=== PATIENT | male | born 1935 | race Caucasian/White ===

== ENCOUNTER 2022-08-13 18:34 | Emergency (ER) | payer MEDICARE ==
[~2022-08-13] VITALS: Ht 162.6 cm; Wt 68.5 kg
[2022-08-13] MEDS ORDERED: IV NS 0.9% 1,000 ML BAG IV ONE (19:30)
--- NOTE | 2022-08-13 19:47 | NUR ---
BIB RA 837 FROM HOME,BLOODY DRAINAGE FROM LEUNG AFTER HOME HEALTH NURSE TRIED TO CHANGE LEUNG. 0PT AWAKE AND ALERT X3 STATES HEMATURIA STARTED TODAY ATRAUMATIC IN NATURE. GROSS HEMATURIA NOTED IN LEUNG BAG. UNABLE TO FLUSH/IRRIGATE CATHETER. V/S WNL.
[2022-08-13 19:48] LABS: CARBON DIOXIDE 27 mmol/L (21-32); CHLORIDE 103 mmol/L (98-107); CREATININE 1.4 mg/dL (0.6-1.3); GLUCOSE 100 mg/dL (74-106); POTASSIUM 3.9 mmol/L (3.5-5.1); SODIUM SERUM 138 mmol/L (136-145); UREA NITROGEN, BLOOD 33 mg/dL (7-18)
[2022-08-13 19:54] LABS: ALANINE AMINOTRANSFERASE 25 U/L (12-78); ALBUMIN 3.1 g/dL (3.4-5.0); ALKALINE PHOSPHATASE 110 U/L (46-116); ASPARTATE AMINOTRANSFERASE 30 U/L (15-37); BILIRUBIN,DIRECT 0.2 mg/dL (0.0-0.2); BILIRUBIN,TOTAL 0.5 mg/dL (0.2-1.0); TOTAL PROTEIN, SERUM 8.1 g/dL (6.4-8.2)
--- NOTE | 2022-08-13 20:04 | NUR ---
MAXINE [phone] .
[2022-08-13 20:09] LABS: BASOPHILS % (AUTO) 0.5 % (0.0-2.0); EOSINOPHILS % (AUTO) 1.4 % (0.0-6.0); HEMATOCRIT 38 % (39-51); HEMOGLOBIN 12.5 g/dL (13.5-17.5); LYMPHOCYTES # (AUTO) 1.4 K/uL (0.8-4.8); MEAN CORPUSCULAR HGB CONC 33 g/dl (31.0-36.0); MEAN CORPUSCULAR VOLUME 89 fL (80-96); MONOCYTES # (AUTO) 0.7 K/uL (0.1-1.30); MONOCYTES % (AUTO) 7.2 % (2.0-12.0); NEUTROPHILS # (AUTO) 7.5 K/uL (1.8-8.9); NEUTROPHILS % (AUTO) 76.9 % (43.0-81.0); PLATELET COUNT (AUTO) 633 K/uL (150-450); WHITE BLOOD COUNT (AUTO) 9.7 K/uL (4.3-11.0)
--- NOTE | 2022-08-13 20:10 | NUR ---
PREVIOUS LEUNG DC'ED DUE TO INABILITY TO IRRIGATE LEUNG. 16FR LEUNG CATHETER INSERTED WITH YELLOW URINE OUTPUT AND MULTIPLE BLOOD CLOTS NOTED APPROX 400ML OUTPUT. PT TOLERATED WELL.
[2022-08-13 20:47] LABS: BILIRUBIN,URINE NEGATIVE (NEGATIVE); COLOR,URINE YELLOW (YELLOW); LEUKOCYTE ESTERASE ,URINE SMALL (NEGATIVE); NITRITE, URINE NEGATIVE (NEGATIVE); PROTEIN,URINE TRACE mg/dl (NEGATIVE); UGLUCOSE NEGATIVE (NEGATIVE); UROBILINOGEN,URINE 0.2 EU/dL (0.2)
[2022-08-13 21:01] LABS: RBC,URINE 81-100 /HPF (0-2)
[2022-08-13 21:02] LABS: BACTERIA,URINE RARE /HPF (None Seen); SQUAMOUS EPITHELIAL CELL,UR 0-2 /HPF (None Seen)
--- NOTE | 2022-08-13 21:10 | NUR ---
APA ETA: 1.5-20 HOURS
--- NOTE | 2022-08-13 22:48 | NUR ---
apa at bed side to picker tender the pt
--- NOTE | 2022-08-13 23:00 | NUR ---
PT WAS PICKED UP BY [facility] IN STABLE CONDITION AND DISCHARGED BACK HOME IN STABLE CONDITION. Patient discharged to home in stable condition. Written and verbal after care instructions given. Patient verbalizes understanding of instruction.
--- NOTE | 2022-08-13 23:01 | NUR ---
IV removed. Catheter intact and site benign. Pressure and 4x4 applied to site. No bleeding noted.
[2022-08-13 23:18] VITALS: BP 127/88
== END 2022-08-13 23:19 | disposition home or self-care (01) ==
LOC: ER 19:38
DX: R31.9 Hematuria, unspecified (principal); Z46.6 Encounter for fitting and adjustment of urinary device
CPT/HCPCS: 99284; 74176; 96360; 51702; 85025; 80048; 87086; 80076; 87106; 81001; 36415; 85730; J7030; A4217

== ENCOUNTER 2022-08-26 09:30 | Emergency (ER) | payer MEDICARE ==
[~2022-08-26] VITALS: Ht 180.3 cm; Wt 73.0 kg
--- NOTE | 2022-08-26 09:45 | NUR ---
pt seen by dr wild at bedside for eval
[2022-08-26] MEDS ORDERED: ONDANSETRON HCL/PF 4 MG/2 ML VIAL ONE (09:59)
[2022-08-26] MEDS ORDERED: IV NS 0.9% 1,000 ML BAG IV ONE ×2 (10:00→16:00)
[2022-08-26] MEDS ORDERED: ONDANSETRON HCL/PF 4 MG/2 ML VIAL IVP ONE (10:00)
[2022-08-26 10:09] LABS: BASOPHILS % (AUTO) 0.2 % (0.0-2.0); HEMATOCRIT 39 % (39-51); HEMOGLOBIN 12.6 g/dL (13.5-17.5); LYMPHOCYTES # (AUTO) 1.2 K/uL (0.8-4.8); LYMPHOCYTES % (AUTO) 10.1 % (20.0-44.0); MEAN CORPUSCULAR HGB CONC 32 g/dl (31.0-36.0); MEAN CORPUSCULAR VOLUME 89 fL (80-96); MONOCYTES # (AUTO) 1.1 K/uL (0.1-1.30); NEUTROPHILS # (AUTO) 9.1 K/uL (1.8-8.9); NEUTROPHILS % (AUTO) 79.7 % (43.0-81.0); PLATELET COUNT (AUTO) 540 K/uL (150-450); RED BLOOD CELL COUNT(AUTO) 4.44 MIL/uL (4.5-6.0); WHITE BLOOD COUNT (AUTO) 11.4 K/uL (4.3-11.0)
--- NOTE | 2022-08-26 10:14 | NUR ---
iv line established on rfa #20, blood drawn and collected by phleb at bedside.
--- NOTE | 2022-08-26 10:14 | NUR ---
urine sample collected and sent to lab
--- NOTE | 2022-08-26 10:15 | NUR ---
graduate nurse at bedside for xray
--- NOTE | 2022-08-26 10:16 | NUR ---
pt taken to radiology for ct
[2022-08-26 10:23] LABS: CALCIUM, SERUM 9.8 mg/dL (8.5-10.1); CARBON DIOXIDE 22 mmol/L (21-32); CHLORIDE 99 mmol/L (98-107); CREATININE 2.5 mg/dL (0.6-1.3); GLUCOSE 149 mg/dL (74-106); POTASSIUM 4.8 mmol/L (3.5-5.1); SODIUM SERUM 131 mmol/L (136-145); UREA NITROGEN, BLOOD 37 mg/dL (7-18)
[2022-08-26 10:28] LABS: ALANINE AMINOTRANSFERASE 17 U/L (12-78); ALBUMIN 2.4 g/dL (3.4-5.0); ALKALINE PHOSPHATASE 81 U/L (46-116); ASPARTATE AMINOTRANSFERASE 39 U/L (15-37); BILIRUBIN,DIRECT 0.3 mg/dL (0.0-0.2); BILIRUBIN,TOTAL 0.6 mg/dL (0.2-1.0); TOTAL PROTEIN, SERUM 7.8 g/dL (6.4-8.2)
--- NOTE | 2022-08-26 10:35 | NUR ---
PT RETURNED FROM RADIOLOGY
--- NOTE | 2022-08-26 10:37 | NUR ---
TECH AT BEDSIDE FOR EKG
--- NOTE | 2022-08-26 10:41 | NUR ---
COVID SWAB COLLECTED AND SENT TO LAB
[2022-08-26] MEDS ORDERED: ATOR40TA PO (11:10)
[2022-08-26] MEDS ORDERED: BUPR75TA8 PO (11:10)
[2022-08-26] MEDS ORDERED: OLME40TA18 PO (11:10)
[2022-08-26] MEDS ORDERED: AMLO-212 PO (11:10)
[2022-08-26] MEDS ORDERED: LATA2.5D15 EACHEYE (11:10)
[2022-08-26] MEDS ORDERED: INSU100V28 SQ (11:10)
[2022-08-26] MEDS ORDERED: HYDR-4075 PO (11:14)
[2022-08-26 11:15] LABS: COLOR,URINE YELLOW (YELLOW)
[2022-08-26 11:16] LABS: BILIRUBIN,URINE NEGATIVE (NEGATIVE); PROTEIN,URINE 1+ mg/dl (NEGATIVE); UGLUCOSE NEGATIVE (NEGATIVE)
[2022-08-26 11:17] LABS: LEUKOCYTE ESTERASE ,URINE NEGATIVE (NEGATIVE); NITRITE, URINE NEGATIVE (NEGATIVE); UROBILINOGEN,URINE 0.2 EU/dL (0.2)
[2022-08-26 11:18] LABS: BACTERIA,URINE Few /HPF (None Seen); SQUAMOUS EPITHELIAL CELL,UR Moderate /HPF (None Seen)
--- NOTE | 2022-08-26 12:00 | NUR ---
MAXINE KRAUSE CELL # [phone] SURGERY REMOVAL OF CYST ON 03-26-[address] RAVINDER MONAHANURO VASCULAR DR. ORION CORDOBA NEURO [facility].
--- NOTE | 2022-08-26 12:09 | NUR ---
CALLED DR. PAUL [phone] OPTION 1 TISSUE RECOVERY TECHNICIAN IS PAUL RATLIFF WILL BE PAGED.
--- NOTE | 2022-08-26 14:04 | NUR ---
IMAGES SENT TO DR. RATLIFF [phone]
--- NOTE | 2022-08-26 14:43 | NUR ---
[facility] [phone] [facility] REQUESTING CLINICALS FAXED TO [phone]
[2022-08-26] MEDS ORDERED: CEFTRIAXONE 1 G in IV D5W 50 ML IV ONE (16:00)
[2022-08-26] MEDS ORDERED: CEFTRIAXONE 1GM BAG (ER ONLY) 50 ML IV ONE (16:03)
--- NOTE | 2022-08-26 18:15 | NUR ---
CALLED [facility] [phone] PER [facility] HAVE ACCEPTING DOCTOR BUT AWAITING FINACIAL CLEARENCE AND BED AVAILIBILITY.
--- NOTE | 2022-08-26 20:18 | NUR ---
PER EFRAIN AT [facility] THEY'RE STILL AT [facility]. WILL KEEP THE PT ACTIVE IN THE LIST
[2022-08-26 21:25] VITALS: BP 126/66
--- NOTE | 2022-08-26 22:26 | NUR ---
patient picked up by private ambulance in no distress going to [facility].
== END 2022-08-26 22:26 | disposition short-term general hospital (02) ==
LOC: ER 09:31
DX: I62.00 Nontraumatic subdural hemorrhage, unspecified (principal); R11.2 Nausea with vomiting, unspecified; N17.9 Acute kidney failure, unspecified; C61 Malignant neoplasm of prostate; R33.8 Other retention of urine; Z95.0 Presence of cardiac pacemaker; Z20.822 Contact with and (suspected) exposure to COVID-19
CPT/HCPCS: 99291; 96365; 70450; 96361; 96375; 87426; 93005; 71045; 85025; 80048; 87040 ×2; 87086; 83605; 80076; 81001; 36415; 84484 ×2; J0696 ×2; J2405; J7060; J7030 ×2; C9803

== ENCOUNTER 2022-09-18 09:36 | Inpatient (IN) | payer MEDICARE ==
[~2022-09-18] VITALS: Ht 160 cm; Wt 59.9 kg
[~2022-09-18 09:36] MED LIST: AMLO-212 PO; ATOR40TA PO; BUPR75TA8 PO; HYDR-4075 PO; INSU100V28 SQ; LATA2.5D15 EACHEYE; OLME40TA18 PO
--- NOTE | 2022-09-18 09:40 | NUR ---
RECEIVED PT 87 YRS MALE CAME FROM HOME BY [employer] C/O RECTALE BLEEDING RED AND BLACK STOOL NO VOMITING BLOOD
--- NOTE | 2022-09-18 10:00 | NUR ---
INSERTED ANGO CATHETER G 20 ON LT HAND BLOOD DROW AND SENT TO LAB
[2022-09-18 11:34] LABS: BASOPHILS # (AUTO) 0.1 K/uL (0.0-0.2); BASOPHILS % (AUTO) 0.8 % (0.0-2.0); HEMATOCRIT 23 % (39-51); HEMOGLOBIN 7.6 g/dL (13.5-17.5); LYMPHOCYTES # (AUTO) 1.3 K/uL (0.8-4.8); LYMPHOCYTES % (AUTO) 18.8 % (20.0-44.0); MEAN CORPUSCULAR HGB CONC 33 g/dl (31.0-36.0); MEAN CORPUSCULAR VOLUME 87 fL (80-96); MONOCYTES # (AUTO) 0.6 K/uL (0.1-1.30); MONOCYTES % (AUTO) 8.6 % (2.0-12.0); NEUTROPHILS % (AUTO) 70.8 % (43.0-81.0); PLATELET COUNT (AUTO) 438 K/uL (150-450); RED BLOOD CELL COUNT(AUTO) 2.66 MIL/uL (4.5-6.0)
[2022-09-18 11:54] LABS: POTASSIUM 3.4 mmol/L (3.5-5.1); SODIUM SERUM 139 mmol/L (136-145)
[2022-09-18 11:55] LABS: ALANINE AMINOTRANSFERASE 10 U/L (12-78); ALBUMIN 2.2 g/dL (3.4-5.0); ALKALINE PHOSPHATASE 68 U/L (46-116); ASPARTATE AMINOTRANSFERASE 12 U/L (15-37); BILIRUBIN,DIRECT 0.2 mg/dL (0.0-0.2); BILIRUBIN,TOTAL 0.4 mg/dL (0.2-1.0); CALCIUM, SERUM 9.1 mg/dL (8.5-10.1); CARBON DIOXIDE 30 mmol/L (21-32); CHLORIDE 105 mmol/L (98-107); CREATININE 1.3 mg/dL (0.6-1.3); GLUCOSE 118 mg/dL (74-106); TOTAL PROTEIN, SERUM 6.6 g/dL (6.4-8.2); UREA NITROGEN, BLOOD 51 mg/dL (7-18)
[2022-09-18] MEDS ORDERED: IV NS 0.9% 250 ML IV ONE ×2 (12:47→14:21)
[2022-09-18] MEDS ORDERED: IOHEXOL-300 100 ML VIAL IV ONE ×2 (12:47→14:21)
--- NOTE | 2022-09-18 12:50 | NUR ---
TO CT SCAN OF ABDOMIN
[2022-09-18] MEDS ORDERED: IV NS 0.9% 500 ML IV ONE (13:00)
--- NOTE | 2022-09-18 13:09 | NUR ---
MOVE SHEET SUBMITTED
--- NOTE | 2022-09-18 13:50 | NUR ---
BACK FROM CT SCAN AWAKE AND ALERT CT WITH contrast unable to be done iv jens FAY NOTEFED AND AWARE
[2022-09-18] MEDS ORDERED: CT SWABBABLE VALVE TRANS SET 1 EA INFUS.SET MC ONE (14:21)
[2022-09-18] MEDS ORDERED: PANTOPRAZOLE 40 MG VIAL IV ONE (14:30)
--- NOTE | 2022-09-18 14:30 | NUR ---
PERRECTAL EXAMINE DONE BY DR. PRICE AT [facility] SIDE
[2022-09-18] MEDS ORDERED: PANTOPRAZOLE 40 MG VIAL ONE (14:40)
--- NOTE | 2022-09-18 14:55 | NUR ---
REPOTED PT HAD EGD AND COLONSCOPY 10 DAYS AGO IN [facility]
--- NOTE | 2022-09-18 15:11 | NUR ---
CLAU REDDY SENT TO LAB
[2022-09-18] MEDS ORDERED: ASPI-1420 PO (15:26)
[2022-09-18] MEDS ORDERED: ZINC50TA65 PO (15:26)
[2022-09-18] MEDS ORDERED: MULT-447 PO (15:26)
[2022-09-18] MEDS ORDERED: TELM40TA8 PO (15:26)
[2022-09-18] MEDS ORDERED: MAGN400O6 PO (15:26)
[2022-09-18] MEDS ORDERED: ASCO-352 PO (15:26)
[2022-09-18] MEDS ORDERED: ACETAMINOPHEN 650 MG/SUPP.RECT RC PRN (15:30)
[2022-09-18] MEDS ORDERED: LORAZEPAM INJ 2 MG/ML VIAL IV PRN (15:30)
[2022-09-18] MEDS ORDERED: DEXTROSE 50%-WATER 50 ML DISP.SYRIN IV PRN (15:30)
[2022-09-18] MEDS ORDERED: Z GUARD REMEDY 4 OZ OINT TP PRN (15:30)
[2022-09-18] MEDS ORDERED: ONDANSETRON HCL/PF 4 MG/2 ML VIAL IVP PRN (15:30)
[2022-09-18] MEDS ORDERED: MORPHINE SULFATE INJ 2 MG/ML DISP.SYRIN IV PRN (15:30)
--- NOTE | 2022-09-18 16:40 | NUR ---
BED GIVEN 309-2
--- NOTE | 2022-09-18 16:48 | NUR ---
NO ACTIVE GI BLEEDING AT THIS TIME RESTING WITH NO PAIN
--- NOTE | 2022-09-18 16:50 | NUR ---
HAND OFF Briana DUNBAR RN TO ROOM 309-1 PT ASLEEPY tatiana rose called name
--- NOTE | 2022-09-18 17:45 | NUR ---
RN Receiving Report. Patient arrived to unit safely, transported by ER team. All safety precautions taken, patient was able to provide his own history. AOx4, able to express his needs and concerns. Assessment was don and multiple wounds and scars noted, pictures taken. IV with no signs of infiltration, no signs of respiratory distress. Oriented pt to unit and made him aware of call light use. Patient states he is tired and would like to get some sleep. VSS and documented. Will provide report to night nurse for continuity of care and to complete assessment.
[2022-09-18 18:00] VITALS: BP 130/58
--- NOTE | 2022-09-18 19:40 | NUR ---
TELERN ALERT ORIENTED X3 TO 4.. NO RESPIRATORY DISTRESS. 99% ON RA. V/S STABLE. WEAK IN APPEARANCE WILL NEED IVF FOR HYDRATION. KEPT NPO FOR NOW. HH MONITORED. PACED BEATS OF THE MONITOR. REPOSITIONED FOR COMFORT.
[2022-09-18 20:00] VITALS: BP 130/51
[2022-09-18] MEDS: PANTOPRAZOLE 40 MG VIAL IV SCH (21:17)
[2022-09-18] MEDS: IV D5/ 0.9% NACL 1,000 ML IV PRN (21:19)
--- NOTE | 2022-09-18 23:10 | NUR ---
TELERN BS STABLE. IVF INFUSING WELL. REQUEST FOR EGD AND COLONOSCOPY RESULTS FROM [facility] FAXED. HS CARE STARTED, NO RECTAL BLEED. RECEIVED CALL FROM PATIENTS OWN PRIMARY MD AND . STATED EGD AND COLONOSCOPY RESULTS WERE NEGATIVE .
[2022-09-18] MEDS: BLOOD SUGAR DIAGNOSTIC 1 EACH STRIP IN SCH (23:49)
[2022-09-19] VITALS (8 sets, daily range): BP systolic 110–151; BP diastolic 51–81
[2022-09-19 00:21] LABS: HEMOGLOBIN 6.2 g/dL (13.5-17.5)
--- NOTE | 2022-09-19 00:48 | NUR ---
TELERN DR. KUMAR NOTIFIED OF LOW HH 6.12/02 ORDERS RECEIVED.
--- NOTE | 2022-09-19 02:50 | NUR ---
MSRN V/S STABLE, UNIT OF PRBC STARTED, STAYED WITH PATIENT FOR 15 MIN, NO TRANSFUSION REACTION.V/S MONITORED.
--- NOTE | 2022-09-19 03:50 | NUR ---
MSRN IV SITE LEAKING, RESTARTED 20 GAUGE ON RIGHT AC BY ROSE GRADER, BLOOD TRANSFUSION INFUSING WELL. FREQUENTLY CHECKED.
--- NOTE | 2022-09-19 06:00 | NUR ---
TELERN ACCUCHECK 121. BLOOD TRANSFUSION ENDED. NO TRANSFUSION REACTION. V/S STABE. BLOOD DRAW POST 1HR. LAB NOTIFIED.
--- NOTE | 2022-09-19 07:30 | NUR ---
RN Receiving Report. AOx4, able to express his needs and concerns. Patient states he is tired but comfortable. PAtient with no signs of respiratory distress, no signs of discomfort. Discussed plan of care, pt verbalized understanding. IV with no signs of infiltration, no signs of respiratory distress. All safety precautions taken, call light and table within reach, bed at lowest position. Will continue to monitor throughout shift.
[2022-09-19] MEDS: BLOOD SUGAR DIAGNOSTIC 1 EACH STRIP IN SCH ×3 (07:45→18:29)
[2022-09-19 08:07] LABS: CALCIUM, SERUM 8.4 mg/dL (8.5-10.1); CREATININE 1.1 mg/dL (0.6-1.3); MAGNESIUM 1.7 mg/dL (1.8-2.4); PHOSPHORUS 2.7 mg/dL (2.5-4.9); POTASSIUM 3.3 mmol/L (3.5-5.1)
[2022-09-19 08:19] LABS: BASOPHILS % (AUTO) 0.3 % (0.0-2.0); EOSINOPHILS % (AUTO) 1.5 % (0.0-6.0); HEMATOCRIT 23 % (39-51); HEMOGLOBIN 7.5 g/dL (13.5-17.5); LYMPHOCYTES # (AUTO) 0.7 K/uL (0.8-4.8); LYMPHOCYTES % (AUTO) 13.3 % (20.0-44.0); MEAN CORPUSCULAR HGB CONC 33 g/dl (31.0-36.0); MEAN CORPUSCULAR VOLUME 87 fL (80-96); MONOCYTES # (AUTO) 0.5 K/uL (0.1-1.30); MONOCYTES % (AUTO) 9.8 % (2.0-12.0); NEUTROPHILS # (AUTO) 4.2 K/uL (1.8-8.9); NEUTROPHILS % (AUTO) 75.1 % (43.0-81.0); PLATELET COUNT (AUTO) 329 K/uL (150-450); RED BLOOD CELL COUNT(AUTO) 2.65 MIL/uL (4.5-6.0); WHITE BLOOD COUNT (AUTO) 5.6 K/uL (4.3-11.0)
[2022-09-19] MEDS: PANTOPRAZOLE 40 MG VIAL IV SCH ×2 (09:04→21:09)
[2022-09-19 11:25] LABS: THYROID STIMULATING HORMONE 1.729 uIU/mL (0.358-3.74)
--- NOTE | 2022-09-19 11:37 | NUR ---
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 SURGICAL CONSULT CALLED TO DR DAVIS AND DPM CONSULT TO DR MAJANO. RECOMMENDATIONS MADE FOR SKIN PROTECTION AND WOUND CARE. DISCUSSED WITH NURSING STAFF. IN AGREEMENT WITH PLAN OF CARE. FIRST STEP LOW AIRSS MATTRESS IS ON ORDER. Addendum: 09/19/22 at 1140 by WAQAS ONTIVEROS WNDNU Amended: Links added.
[2022-09-19] MEDS: POTASSIUM CL. PREMIX PERIPHER. 50 ML IV SCH ×2 (11:54→13:30)
[2022-09-19] MEDS: Magnesium 1GM/D5W 100ML PREMIX 100 ML IV SCH ×2 (11:54→12:37)
[2022-09-19] MEDS: THERAHONEY GEL 1.5 OZ TUBE TP SCH (12:00)
[2022-09-19 12:12] LABS: HEMOGLOBIN 7.3 g/dL (13.5-17.5)
--- NOTE | 2022-09-19 16:55 | NUR ---
SS consult received for pt. from home with multiple pressure ulcers. SW will follow up at a later time.
--- NOTE | 2022-09-19 18:57 | NUR ---
RN Closing Note. Pt AOx4, able to express his needs and concerns. IV with no signs of infiltration, no signs of respiratory distress. Administered medications as ordered and provided care as needed. was here earlier, states she ill contact pts primary and ask to communicate with Dr. Michele/DONG. and patient made aware of pending consult and POC, they both verbalized agreement. . Will provide report to night nurse for continuity of care and to complete assessment.
[2022-09-19 19:53] LABS: HEMOGLOBIN 7.8 g/dL (13.5-17.5)
[2022-09-19] MEDS ORDERED: SILVER NITRATE APPLICATOR 1 EA BOX TP SCH (20:30)
[2022-09-19] MEDS ORDERED: LIDOCAINE 1%-EPI 1:100,000 20 ML VIAL TP ONE (20:30)
--- NOTE | 2022-09-19 20:53 | NUR ---
SENIOR INFORMATION SECURITY ENGINEER OPENING NOTES RECEIVED PATIENT LYING ASLEEP IN BED. A/O X3-4. ON ROOM AIR, SATURATING WELL AT 99%. NO ACUTE DISTRESS NOTED. ON NPO STATUS. IV ACCESS AT RIGHT AC #20 RUNNING D5 NS @70ML/H, INFUSING WELL. STILL PENDING GI CONSULT. SAFETY MEASURES MAINTAINED, BED LOWERED AND LOCKED. SIDE RAILS UPX2, CALL LIGHT WITHIN REACH. WILL CONTINUE TO MONITOR.
[2022-09-20] VITALS: BP 144/58
[2022-09-20] MEDS: BLOOD SUGAR DIAGNOSTIC 1 EACH STRIP IN SCH ×5 (02:08→23:18)
[2022-09-20 04:00] VITALS: BP 133/63
[2022-09-20 06:18] LABS: BASOPHILS % (AUTO) 0.6 % (0.0-2.0); EOSINOPHILS % (AUTO) 4.9 % (0.0-6.0); HEMATOCRIT 23 % (39-51); HEMOGLOBIN 7.6 g/dL (13.5-17.5); LYMPHOCYTES # (AUTO) 0.7 K/uL (0.8-4.8); LYMPHOCYTES % (AUTO) 24.1 % (20.0-44.0); MEAN CORPUSCULAR HGB CONC 33 g/dl (31.0-36.0); MEAN CORPUSCULAR VOLUME 87 fL (80-96); MONOCYTES # (AUTO) 0.4 K/uL (0.1-1.30); MONOCYTES % (AUTO) 13.2 % (2.0-12.0); NEUTROPHILS # (AUTO) 1.6 K/uL (1.8-8.9); NEUTROPHILS % (AUTO) 57.2 % (43.0-81.0); PLATELET COUNT (AUTO) 351 K/uL (150-450); RED BLOOD CELL COUNT(AUTO) 2.67 MIL/uL (4.5-6.0); WHITE BLOOD COUNT (AUTO) 2.7 K/uL (4.3-11.0)
[2022-09-20 06:34] LABS: CALCIUM, SERUM 8.4 mg/dL (8.5-10.1); CARBON DIOXIDE 26 mmol/L (21-32); CHLORIDE 118 mmol/L (98-107); GLUCOSE 130 mg/dL (74-106); MAGNESIUM 2.2 mg/dL (1.8-2.4); POTASSIUM 3.2 mmol/L (3.5-5.1); SODIUM SERUM 151 mmol/L (136-145); UREA NITROGEN, BLOOD 27 mg/dL (7-18)
--- NOTE | 2022-09-20 06:41 | NUR ---
ROVING CHANGER CLOSING NOTES PATIENT LYING ASLEEP IN BED. A/O X3-4. ON ROOM AIR, SATURATING WELL AT 99%. NO ACUTE DISTRESS NOTED. ON NPO STATUS. IV ACCESS AT RIGHT AC #20 RUNNING D5 NS @70ML/H, INFUSING WELL. STILL PENDING GI CONSULT. SAFETY MEASURES MAINTAINED, BED LOWERED AND LOCKED. SIDE RAILS UPX2, CALL LIGHT WITHIN REACH. WILL ENDORSE TO NEXT SHIFT FOR PAZ. . Addendum: 09/20/22 at 0645 by CARISA HU RN ON TELE MONITORING: V PACING, HR 84
--- NOTE | 2022-09-20 07:30 | NUR ---
HEALTH NAVIGATOR OPENING NOTES RECEIVED PATIENT AWAKE IN BED. A/O X3-4. ON ROOM AIR, SATURATING WELL AT 99%. NO ACUTE DISTRESS NOTED. ON NPO STATUS. IV ACCESS AT RIGHT AC #20 RUNNING D5 NS @70ML/H, INFUSING WELL. STILL PENDING GI CONSULT. SAFETY MEASURES MAINTAINED, BED LOWERED AND LOCKED. SIDE RAILS UPX2, CALL LIGHT WITHIN REACH. WILL CONTINUE TO MONITOR.
[2022-09-20] MEDS: PANTOPRAZOLE 40 MG VIAL IV SCH ×2 (08:23→20:23)
[2022-09-20 08:28] VITALS: BP 163/65
[2022-09-20] MEDS: IV D5/ 0.9% NACL 1,000 ML IV PRN (08:45)
[2022-09-20] MEDS: THERAHONEY GEL 1.5 OZ TUBE TP SCH (09:16)
--- NOTE | 2022-09-20 10:00 | NUR ---
SPOKE TO OVER THE PHONE, CONSENT SECURED FOR WOUND DEBRIDEMENT
[2022-09-20 12:00] VITALS: BP 140/71
[2022-09-20] MEDS ORDERED: POLYETHYLENE GLYCOL 3350 17 GM POWD.PACK PO ONE (12:00)
[2022-09-20] MEDS: POTASSIUM CL. PREMIX PERIPHER. 50 ML IV SCH ×4 (12:50→16:27)
[2022-09-20] MEDS: DOCUSATE SODIUM 100 MG CAPSULE PO SCH ×2 (12:50→16:31)
--- NOTE | 2022-09-20 15:55 | NUR ---
CALLED [facility] OVER THE PHONE TO OBTAIN RESULT/MEDICAL RESULT OF EGD/COLONOSCOPY HOWEVER CANNOT BE REACHED, LEFT VOICEMAIL INSTEAD.
[2022-09-20 16:31] VITALS: BP 155/69
--- NOTE | 2022-09-20 17:48 | NUR ---
SCRIPT MANAGER CLOSING NOTES PATIENT AWAKE IN BED. A/O X3-4. ON ROOM AIR, SATURATING WELL AT 95%. NO ACUTE DISTRESS NOTED. ON FULL DIET. IV ACCESS AT RIGHT AC #20, INFUSING WELL. FC CONNECTED TO A BAG PATENT AND DRAINING WELL. DEBRIDEMENT DONE WITH NO COMPLICATIONS. NO C/O NAUSEA/VOMITING AT THIS TIME. SAFETY MEASURES MAINTAINED, BED LOWERED AND LOCKED. SIDE RAILS UPX2, CALL LIGHT WITHIN REACH. WILL ENDORSE TO NEXT SHIFT FOR PAZ. .
[2022-09-20 18:22] LABS: HEMOGLOBIN 7.9 g/dL (13.5-17.5)
--- NOTE | 2022-09-20 18:33 | NUR ---
NO EPISODE OF BLEEDING IN THE STOOL NOTED
--- NOTE | 2022-09-20 19:47 | NUR ---
TREE SPECIALIST OPENING NOTE; RECEIVED PATIENT AWAKE IN BED. A/O X3-4. ON ROOM AIR, SATURATING WELL AT 97%.NO SIGN SOB/DISTRESS NOTED,NO COMPLAIN OF PAIN/DISCOMFORT AT THIS TIME, IV ACCESS AT RIGHT AC #20, INFUSING WELL. FC CONNECTED TO A BAG PATENT AND DRAINING WELL.SAFETY MEASURES MAINTAINED, BED LOWERED AND LOCKED POSITION,SIDE RAILS UPX2,CALL LIGHT WITHIN REACH,WILL CONTINUE TO MONITOR.
[2022-09-20 21:10] VITALS: BP 131/55
[2022-09-21 00:51] VITALS: BP 150/67
[2022-09-21 04:15] VITALS: BP 122/48
[2022-09-21] MEDS: BLOOD SUGAR DIAGNOSTIC 1 EACH STRIP IN SCH ×3 (06:01→19:03)
--- NOTE | 2022-09-21 06:14 | NUR ---
BRAILLE TYPIST CLOSING NOTE; PATIENT IN BED SLEEPING,BUT EASY TO AROUSED, A/O X3. ON ROOM AIR, SATURATING WELL AT 96%.NO SIGN SOB/DISTRESS NOTED,NO COMPLAIN OF PAIN/DISCOMFORT DURING SHIFT,DUE MEDS GIVEN ORDER,ALL NEEDS ATTENDED,IV ACCESS AT RIGHT AC #20, INFUSING WELL. FC INTACT DRAINING JOSUE URINE.NO ODOR NOTED,.SAFETY MEASURES MAINTAINED, BED LOWERED AND LOCKED POSITION,SIDE RAILS UPX2,CALL LIGHT WITHIN REACH,WILL ENDORSED TO NEXT SHIFT.
[2022-09-21 06:22] LABS: BASOPHILS % (AUTO) 0.4 % (0.0-2.0); EOSINOPHILS % (AUTO) 4.6 % (0.0-6.0); HEMATOCRIT 22 % (39-51); HEMOGLOBIN 7.2 g/dL (13.5-17.5); LYMPHOCYTES # (AUTO) 0.8 K/uL (0.8-4.8); LYMPHOCYTES % (AUTO) 21.2 % (20.0-44.0); MEAN CORPUSCULAR HGB CONC 33 g/dl (31.0-36.0); MEAN CORPUSCULAR VOLUME 88 fL (80-96); MONOCYTES # (AUTO) 0.5 K/uL (0.1-1.30); NEUTROPHILS # (AUTO) 2.4 K/uL (1.8-8.9); NEUTROPHILS % (AUTO) 61.8 % (43.0-81.0); PLATELET COUNT (AUTO) 335 K/uL (150-450); RED BLOOD CELL COUNT(AUTO) 2.52 MIL/uL (4.5-6.0); WHITE BLOOD COUNT (AUTO) 3.9 K/uL (4.3-11.0)
[2022-09-21 06:53] LABS: CALCIUM, SERUM 8.4 mg/dL (8.5-10.1); CREATININE 0.9 mg/dL (0.6-1.3); POTASSIUM 3.6 mmol/L (3.5-5.1)
--- NOTE | 2022-09-21 07:36 | NUR ---
DIRECTOR ADVANCED OPENING NOTE PATIENT IN BED SLEEPING, BUT EASY TO AROUSED, A/O X3. ON ROOM AIR, SATURATING WELL AT 95%.NO SIGN SOB/DISTRESS NOTED. IV ACCESS AT RIGHT AC #20, INFUSING WELL. FC INTACT PATENT AND DRAINING WELL. SAFETY MEASURES MAINTAINED, BED LOWERED AND LOCKED POSITION,SIDE RAILS UPX2,CALL LIGHT WITHIN REACH,WILL CONTINUE TO MONITOR.
[2022-09-21 08:26] VITALS: BP 139/68
[2022-09-21] MEDS: DOCUSATE SODIUM 100 MG CAPSULE PO SCH ×2 (08:30→19:03)
[2022-09-21] MEDS: PANTOPRAZOLE 40 MG VIAL IV SCH ×2 (08:30→21:37)
[2022-09-21] MEDS: THERAHONEY GEL 1.5 OZ TUBE TP SCH (09:14)
[2022-09-21 16:03] VITALS: BP_SYST 125; BP_SYST 144; BP_DIAS 56; BP_DIAS 75
--- NOTE | 2022-09-21 16:07 | NUR ---
SS note: SS consult was requested for pressure ulcers, see wound nurse report for details. SW met with the pt. at bedside. The pt. is alert & oriented x2 and makes good eye contact. The pt. has slow soft speech and remained calm & cooperative throughout assessment. The pt. is a poor historian. SW asked pt. for verbal consent to speak to his and pt. was agreeable. SW called the pt.'s , Cande Fortune [phone] who stated that the pt. is in hospice care at home [[id number] [place] [address]]. Per Cande the pt. is receiving care by [facility] [phone] and they send nurses to see pt. regularly and someone comes to the home to help bathe the pt. reported that she is the caregiver but feels she is unable to care for the pt. any longer and would like SNF placement for the pt. Per CM notes, the pt. has been referred to : [facility] P:[phone]/F:[phone] has been accepted; [facility] P:[phone]/F:[phone] and has been accepted; [facility] ([place] P:[phone]/F:[phone] pending response. CM to follow up with helping family decide on facility. No need for APS report at this time as the pt.'s needs are being met and pt will most likely DC to higher level of care facility. SW will be available as needed.
--- NOTE | 2022-09-21 19:30 | NUR ---
PRINCIPAL ARCHAEOLOGIST OPENING NOTES RECEIVED PATIENT LAYING IN BED AWAKE. A/O X4. BREATHING EVEN AND NON-LABORED ON ROOM AIR. NOT IN APPARENT DISTRESS. NO PAIN OR DISCOMFORT NOTED. ON TELE MONITOR READING V-PACING AT 95 BPM. HAS THE FF IV ACCESS: RIGHT AND LEFT ANTECUBITAL #20G, AND LEFT HAND #20G, ALL SALINE LOCKED. HAS INDWELLING LEUNG CATHETER DRAINING CLEAR YELLOW URINE TO BAG BY GRAVITY. ADVISED PATIENT TO INCREASE FOOD AND FLUID INTAKE. SAFETY PRECAUTIONS IN PLACE: BED LOW AND LOCKED, SIDE RAILS UP X2, CALL LIGHT WITHIN REACH.
--- NOTE | 2022-09-21 19:36 | NUR ---
MARKETING RECRUITER CLOSING NOTES PATIENT AWAKE IN BED. A/O X3-4. ON ROOM AIR, SATURATING WELL AT 95%. NO ACUTE DISTRESS NOTED. ON FULL DIET. IV ACCESS AT RIGHT AC #20, INFUSING WELL. FC CONNECTED TO A BAG PATENT AND DRAINING WELL. ALL DUE MEDS GIVEN. KEPT COMFORTABLE. NO BLEEDING NOTED NO C/O NAUSEA/VOMITING AT THIS TIME. SAFETY MEASURES MAINTAINED, BED LOWERED AND LOCKED. SIDE RAILS UPX2, CALL LIGHT WITHIN REACH. WILL ENDORSE TO NEXT SHIFT FOR PAZ.
[2022-09-21 20:00] VITALS: BP 132/98
[2022-09-21] MEDS ORDERED: MAGNESIUM HYDROXIDE 30 ML UDC PO PRN (22:00)
[2022-09-21] MEDS: LATANOPROST EYE DROP 0.005% 2.5 ML BOTTLE EACHEYE SCH (22:45)
[2022-09-22] VITALS: BP 106/55
[2022-09-22] MEDS: BLOOD SUGAR DIAGNOSTIC 1 EACH STRIP IN SCH ×4 (00:42→18:25)
[2022-09-22] MEDS: INSULIN REGULAR, HUMAN 100 UNIT/ML 3 ML VIAL SQ PRN ×3 (00:42→18:26)
[2022-09-22 04:00] VITALS: BP 126/58
--- NOTE | 2022-09-22 06:27 | NUR ---
COAL CUTTER CLOSING NOTES PATIENT LAYING IN BED ASLEEP, EASY TO AROUSE. ABLE TO VERBALIZE NEEDS. STABLE THROUGHOUT THE SHIFT. AFEBRILE. NO BLEEDING NOTED. ON TELE MONITOR READING V-PACING AT 88 BPM. LEFT HAND IV ACCESS #20G INTACT, PATENT AND FLUSHING. CLEAR JOSUE URINE OUTPUT OF 900 ML. NO HEMATURIA OR SEDIMENTS NOTED. BS 87 MG/DL AFTER DRINKING APPLE JUICE. ALL DUE MEDS GIVEN AND NEEDS ATTENDED. SAFETY PRECAUTIONS MAINTAINED. WILL ENDORSE TO NEXT SHIFT FOR PAZ.
[2022-09-22 07:22] LABS: BASOPHILS % (AUTO) 0.4 % (0.0-2.0); EOSINOPHILS % (AUTO) 3.2 % (0.0-6.0); HEMATOCRIT 23 % (39-51); HEMOGLOBIN 7.4 g/dL (13.5-17.5); LYMPHOCYTES # (AUTO) 1.3 K/uL (0.8-4.8); LYMPHOCYTES % (AUTO) 23.7 % (20.0-44.0); MEAN CORPUSCULAR HGB CONC 33 g/dl (31.0-36.0); MEAN CORPUSCULAR VOLUME 89 fL (80-96); MONOCYTES # (AUTO) 0.5 K/uL (0.1-1.30); MONOCYTES % (AUTO) 8.9 % (2.0-12.0); NEUTROPHILS # (AUTO) 3.6 K/uL (1.8-8.9); NEUTROPHILS % (AUTO) 63.8 % (43.0-81.0); PLATELET COUNT (AUTO) 364 K/uL (150-450); RED BLOOD CELL COUNT(AUTO) 2.58 MIL/uL (4.5-6.0); WHITE BLOOD COUNT (AUTO) 5.6 K/uL (4.3-11.0)
--- NOTE | 2022-09-22 07:52 | NUR ---
CARRY OUT CLERK OPENING NOTE PATIENT IN BED SLEEPING , BUT EASY TO AROUSED, A/O X3. ON ROOM AIR, SATURATING WELL AT 95%.NO SIGN SOB/DISTRESS NOTED. IV ACCESS AT RIGHT AC #20, PATENT, FLUSHED WITHOUT RESISTANCE. SALINE LOCKED. FC INTACT PATENT AND DRAINING WELL. SAFETY MEASURES MAINTAINED, BED LOWERED AND LOCKED POSITION,SIDE RAILS UPX2,CALL LIGHT WITHIN REACH,WILL CONTINUE TO MONITOR.
[2022-09-22 07:56] LABS: CALCIUM, SERUM 8.4 mg/dL (8.5-10.1); POTASSIUM 3.3 mmol/L (3.5-5.1)
[2022-09-22 08:00] VITALS: BP 140/62
[2022-09-22] MEDS: DOCUSATE SODIUM 100 MG CAPSULE PO SCH ×2 (09:11→18:25)
[2022-09-22] MEDS: PANTOPRAZOLE 40 MG VIAL IV SCH ×2 (09:11→21:12)
[2022-09-22] MEDS: AMLODIPINE BESYLATE 5 MG TABLET PO SCH (09:12)
[2022-09-22] MEDS: LOSARTAN POTASSIUM 50 MG TABLET PO SCH (09:12)
[2022-09-22] MEDS: MULTIVITAMINS,THERAGRAN 1 UDTAB TABLET PO SCH (09:12)
[2022-09-22] MEDS: ATORVASTATIN 40 MG TABLET PO SCH (09:12)
[2022-09-22] MEDS: ZINC SULFATE 220 MG CAPSULE PO SCH (09:13)
[2022-09-22] MEDS: ASCORBIC ACID 500 MG TABLET PO SCH (09:13)
[2022-09-22] MEDS: THERAHONEY GEL 1.5 OZ TUBE TP SCH (09:14)
[2022-09-22] MEDS ORDERED: POTASSIUM CHLORIDE 20 MEQ TAB.PRT.SR PO SCH (10:00)
[2022-09-22 12:00] VITALS: BP 112/60
[2022-09-22 16:00] VITALS: BP 102/46
--- NOTE | 2022-09-22 19:04 | NUR ---
FOREST TECHNOLOGY PROFESSOR CLOSING NOTE PATIENT AWAKE IN BED. A/O X3-4. ON ROOM AIR, SATURATING WELL AT 94 - 96%. NO ACUTE DISTRESS NOTED. ON FULL DIET. IV ACCESS AT RIGHT AC #20, INFUSING WELL. FC CONNECTED TO A BAG PATENT AND DRAINING WELL. ALL DUE MEDS GIVEN. KEPT COMFORTABLE. NO BLEEDING NOTED NO C/O NAUSEA/VOMITING AT THIS TIME. WOUND CARE DRESSING CHANGES DONE SAFETY MEASURES MAINTAINED, BED LOWERED AND LOCKED. SIDE RAILS UPX2, CALL LIGHT WITHIN REACH. WILL ENDORSE TO NEXT SHIFT FOR PAZ.
--- NOTE | 2022-09-22 19:15 | NUR ---
SELF CONTAINED BEHAVIOR UNIT TEACHER OPENING NOTES RECEIVED PATIENT AWAKE IN BED, IN HIGH DAY'S POSITION. A/O X3-4. BREATHING EVEN AND NON-LABORED ON ROOM AIR. NOT IN APPARENT DISTRESS. NO C/O PAIN OR DISCOMFORT. ON TELE MONITOR READING V-PACING AT 99 BPM. HAS LEFT HAND IV ACCESS #20G AND SALINE LOCKED. NO S/S OF INFILTRATION NOTED. RIGHT ANTECUBITAL IV ACCESS #20G IS INFILTRATED BUT PATIENT REFUSED TO HAVE IT REMOVED. EXPLAINED RISKS AND BENEFITS. HAS INDWELLING LEUNG CATHETER DRAINING CLEAR YELLOW URINE TO BAG BY GRAVITY. SAFETY PRECAUTIONS IN PLACE: BED LOW AND LOCKED, SIDE RAILS UP X3, CALL LIGHT WITHIN REACH. WILL CONTINUE POC.
[2022-09-22 20:00] VITALS: BP 116/58
[2022-09-22] MEDS: LATANOPROST EYE DROP 0.005% 2.5 ML BOTTLE EACHEYE SCH (21:17)
[2022-09-23] VITALS: BP 121/53
[2022-09-23] MEDS: INSULIN REGULAR, HUMAN 100 UNIT/ML 3 ML VIAL SQ PRN (00:17)
[2022-09-23] MEDS: BLOOD SUGAR DIAGNOSTIC 1 EACH STRIP IN SCH ×4 (00:17→18:22)
[2022-09-23 04:00] VITALS: BP 116/56
[2022-09-23 06:06] LABS: BASOPHILS % (AUTO) 0.3 % (0.0-2.0); EOSINOPHILS % (AUTO) 1.2 % (0.0-6.0); HEMATOCRIT 23 % (39-51); HEMOGLOBIN 7.6 g/dL (13.5-17.5); LYMPHOCYTES # (AUTO) 1.4 K/uL (0.8-4.8); LYMPHOCYTES % (AUTO) 15.9 % (20.0-44.0); MEAN CORPUSCULAR HGB CONC 33 g/dl (31.0-36.0); MEAN CORPUSCULAR VOLUME 88 fL (80-96); MONOCYTES # (AUTO) 0.6 K/uL (0.1-1.30); MONOCYTES % (AUTO) 7.4 % (2.0-12.0); NEUTROPHILS # (AUTO) 6.5 K/uL (1.8-8.9); NEUTROPHILS % (AUTO) 75.2 % (43.0-81.0); PLATELET COUNT (AUTO) 379 K/uL (150-450); RED BLOOD CELL COUNT(AUTO) 2.65 MIL/uL (4.5-6.0); WHITE BLOOD COUNT (AUTO) 8.7 K/uL (4.3-11.0)
[2022-09-23 06:22] LABS: CALCIUM, SERUM 7.8 mg/dL (8.5-10.1); CREATININE 1.1 mg/dL (0.6-1.3); POTASSIUM 3.5 mmol/L (3.5-5.1)
--- NOTE | 2022-09-23 06:51 | NUR ---
RADIATION THERAPIST CLOSING NOTES PATIENT ASLEEP IN BED, EASY TO AROUSE. ABLE TO VERBALIZE NEEDS. STABLE THROUGHOUT THE SHIFT. SATURATING AT 97% ON ROOM AIR. AFEBRILE. ON TELE MONITOR READING V-PACING AT 98 BPM. LEFT HAND IV ACCESS REMOVED D/T LEAKING. LEFT ANTECUBITAL IV ACCESS #20G INTACT, PATENT AND FLUSHING. CLEAR YELLOW URINE OUTPUT OF 25 ML NOTED. ENCOURAGED INCREASE FOOD INTAKE. WOUND CARE RENDERED. ALL DUE MEDS GIVEN AND NEEDS ATTENDED. SAFETY PRECAUTIONS MAINTAINED. WILL ENDORSE TO NEXT SHIFT FOR PAZ.
[2022-09-23 08:00] VITALS: BP 129/60
[2022-09-23] MEDS: ZINC SULFATE 220 MG CAPSULE PO SCH (08:56)
[2022-09-23] MEDS: MULTIVITAMINS,THERAGRAN 1 UDTAB TABLET PO SCH (08:56)
[2022-09-23] MEDS: DOCUSATE SODIUM 100 MG CAPSULE PO SCH ×2 (08:56→18:24)
[2022-09-23] MEDS: ATORVASTATIN 40 MG TABLET PO SCH (08:56)
[2022-09-23] MEDS: AMLODIPINE BESYLATE 5 MG TABLET PO SCH (08:56)
[2022-09-23] MEDS: ASCORBIC ACID 500 MG TABLET PO SCH (08:56)
[2022-09-23] MEDS: PANTOPRAZOLE 40 MG VIAL IV SCH ×2 (08:57→20:30)
[2022-09-23] MEDS: LOSARTAN POTASSIUM 50 MG TABLET PO SCH (09:01)
[2022-09-23] MEDS: THERAHONEY GEL 1.5 OZ TUBE TP SCH (09:02)
[2022-09-23 12:00] VITALS: BP 129/58
[2022-09-23 16:00] VITALS: BP 97/43
--- NOTE | 2022-09-23 19:51 | NUR ---
MANAGER SHIFT OPENING NOTES RECEIVED PATIENT ASLEEP IN BED, EASY TO AROUSE. A/O X3. BREATHING EVEN AND NON-LABORED ON ROOM AIR. NOT IN APPARENT DISTRESS. NO C/O PAIN OR DISCOMFORT. ON TELE MONITOR READING V-PACING AT 105 BPM. HAS LEFT ANTECUBITAL IV ACCESS #20G AND SALINE LOCKED. NO S/S OF INFILTRATION NOTED. RIGHT ANTECUBITAL IV ACCESS #20G INFILTRATED, WILL ATTEMPT TO REMOVE LATER. HAS INDWELLING LEUNG CATHETER DRAINING CLEAR YELLOW URINE TO BAG BY GRAVITY. SAFETY PRECAUTIONS IN PLACE: BED LOW AND LOCKED, SIDE RAILS UP X3, CALL LIGHT WITHIN REACH. WILL CONTINUE POC.
[2022-09-23 20:00] VITALS: BP 105/58
[2022-09-23] MEDS: LATANOPROST EYE DROP 0.005% 2.5 ML BOTTLE EACHEYE SCH (21:06)
[2022-09-24] VITALS: BP 108/52
[2022-09-24] MEDS: BLOOD SUGAR DIAGNOSTIC 1 EACH STRIP IN SCH ×3 (01:00→12:00)
[2022-09-24] MEDS: INSULIN REGULAR, HUMAN 100 UNIT/ML 3 ML VIAL SQ PRN ×2 (01:01→05:36)
[2022-09-24 04:00] VITALS: BP 106/60
--- NOTE | 2022-09-24 05:42 | NUR ---
PENSIONHOLDER INFORMATION CLERK NOTES BS AT 0000 IS 77 AND 0530 IS 88. NO REGULAR INSULIN COVERAGE GIVEN PER PROTOCOL.
--- NOTE | 2022-09-24 06:57 | NUR ---
PROCUREMENT ENGINEER CLOSING NOTES PATIENT LAYING IN BED ASLEEP, EASY TO AROUSE. A/O X3, LETHARGIC. NO SOB OR NOTED, STABLE ON ROOM AIR. NO C/O PAIN, N/V. AFEBRILE. ON TELE MONITOR READING V-PACING AT 79 BPM. LEFT ANTECUBITAL IV ACCESS #20G WITH LEAKING NOTED, PATIENT REFUSED TO REMOVE IV AND REINSERT. URINE OUTPUT OF 650 ML. DARK STOOL NOTED. NO ACTIVE BLEEDING. STILL AWAITING FOR EGD/COLONOSCOPY RESULTS FROM [facility]. ALL DUE MEDS GIVEN AND NEEDS ATTENDED. SAFETY PRECAUTIONS MAINTAINED. WILL ENDORSE TO NEXT SHIFT FOR PAZ.
[2022-09-24 07:00] LABS: CALCIUM, SERUM 8.2 mg/dL (8.5-10.1); POTASSIUM 3.3 mmol/L (3.5-5.1)
[2022-09-24 07:08] LABS: BASOPHILS % (AUTO) 0.2 % (0.0-2.0); EOSINOPHILS % (AUTO) 1.2 % (0.0-6.0); HEMATOCRIT 23 % (39-51); HEMOGLOBIN 7.7 g/dL (13.5-17.5); LYMPHOCYTES # (AUTO) 1.8 K/uL (0.8-4.8); LYMPHOCYTES % (AUTO) 19.3 % (20.0-44.0); MEAN CORPUSCULAR HGB CONC 34 g/dl (31.0-36.0); MEAN CORPUSCULAR VOLUME 87 fL (80-96); MONOCYTES # (AUTO) 0.7 K/uL (0.1-1.30); NEUTROPHILS # (AUTO) 6.6 K/uL (1.8-8.9); NEUTROPHILS % (AUTO) 71.3 % (43.0-81.0); PLATELET COUNT (AUTO) 421 K/uL (150-450); RED BLOOD CELL COUNT(AUTO) 2.63 MIL/uL (4.5-6.0); WHITE BLOOD COUNT (AUTO) 9.3 K/uL (4.3-11.0)
[2022-09-24] MEDS: THERAHONEY GEL 1.5 OZ TUBE TP SCH (09:00)
[2022-09-24] MEDS: MULTIVITAMINS,THERAGRAN 1 UDTAB TABLET PO SCH (10:09)
[2022-09-24] MEDS: DOCUSATE SODIUM 100 MG CAPSULE PO SCH (10:09)
[2022-09-24] MEDS: AMLODIPINE BESYLATE 5 MG TABLET PO SCH (10:09)
[2022-09-24 10:10] VITALS: BP 130/56
[2022-09-24] MEDS: ASCORBIC ACID 500 MG TABLET PO SCH (10:10)
[2022-09-24] MEDS: PANTOPRAZOLE 40 MG VIAL IV SCH (10:10)
[2022-09-24] MEDS: ATORVASTATIN 40 MG TABLET PO SCH (10:10)
[2022-09-24] MEDS: LOSARTAN POTASSIUM 50 MG TABLET PO SCH (10:10)
[2022-09-24] MEDS: ZINC SULFATE 220 MG CAPSULE PO SCH (10:15)
[2022-09-24] MEDS ORDERED: POTASSIUM CHLORIDE 20 MEQ POWDER PACKET PO ONE ×2 (11:00→13:30)
--- NOTE | 2022-09-24 14:50 | NUR ---
CLOSING NOTE EGG SEPARATORTESTER OPERATOR HELPER REPORT GIVEN TO RECEIVING NURSE JUVE AT [facility]. ALL MEDS ARE RECONCILED. ALL DISCHARGE INSTRUCTIONS GIVEN TO MEDICS. NO SIGNS OF SHORTNESS OF BREATH NOTED. IV DISCONTINUE. LEUNG PATENT AND INTACT. WOUND CLEANED AND DRESSED. NO SIGNS OF ACUTE DISTRESS NOTED.
[2022-09-24] MEDS ORDERED: ENSURE ENLIVE 237 ML LIQUID (VANILLA) PO SCH (17:00)
== END 2022-09-24 15:52 | DRG 356 ==
LOC: ER 09:40 → TELE1 16:52 → MED 18:06 → TELE 21:21
PROVIDERS: ADMIT Nurse Practitioner Acute Care; ATTEND Nurse Practitioner Acute Care
PROC: 30233N1 Transfusion of Nonautologous Red Blood Cells into Peripheral Vein, Percutaneous Approach (ICD-10-PCS; principal; 2022-09-19)
PROC: 0JB70ZZ Excision of Back Subcutaneous Tissue and Fascia, Open Approach (ICD-10-PCS; 2022-09-20)
PROC: 0KBG0ZZ Excision of Left Trunk Muscle, Open Approach (ICD-10-PCS; 2022-09-20)
PROC: 0KBF0ZZ Excision of Right Trunk Muscle, Open Approach (ICD-10-PCS; 2022-09-20)
DX: K92.2 Gastrointestinal hemorrhage, unspecified (principal); E43 Unspecified severe protein-calorie malnutrition; L89.114 Pressure ulcer of right upper back, stage 4; L89.153 Pressure ulcer of sacral region, stage 3; D62 Acute posthemorrhagic anemia; R64 Cachexia; Z68.1 Body mass index [BMI] 19.9 or less, adult; E87.0 Hyperosmolality and hypernatremia; Z20.822 Contact with and (suspected) exposure to COVID-19; Z86.73 Personal history of transient ischemic attack (TIA), and cerebral infarction without residual deficits; I10 Essential (primary) hypertension; Z95.828 Presence of other vascular implants and grafts; Z90.6 Acquired absence of other parts of urinary tract; K21.9 Gastro-esophageal reflux disease without esophagitis; Z85.841 Personal history of malignant neoplasm of brain; N20.0 Calculus of kidney; E78.5 Hyperlipidemia, unspecified; Z79.82 Long term (current) use of aspirin; Z79.899 Other long term (current) drug therapy; G31.84 Mild cognitive impairment of uncertain or unknown etiology; K59.00 Constipation, unspecified; E11.9 Type 2 diabetes mellitus without complications; I71.43 Infrarenal abdominal aortic aneurysm, without rupture; I72.3 Aneurysm of iliac artery; E87.6 Hypokalemia; L89.216 Pressure-induced deep tissue damage of right hip; L89.616 Pressure-induced deep tissue damage of right heel; L89.896 Pressure-induced deep tissue damage of other site; E83.42 Hypomagnesemia; K57.30 Diverticulosis of large intestine without perforation or abscess without bleeding
CPT/HCPCS: 36415; 71045-TC; 80048-TC; 80076-TC; 82962-TC; 83735-TC; 84100-TC; 84443-TC; 84484-TC; 85025-TC; 85027-TC; 85730-TC; 86850-TC; 87081-TC; 97112-TC; 97116-TC; 97530-TC; 97535-TC; A6403; C9113; C9803; G0378; J1815; J3475; J3480; J3490; J7030; J7042; J7050; P9016; Q9967

== ENCOUNTER 2022-09-29 09:09 | Inpatient (IN) | payer MEDICARE ==
[~2022-09-29] VITALS: Ht 180.3 cm; Wt 62.6 kg
[~2022-09-29 09:09] MED LIST changes: +ASCO-352 PO; +ASPI-1420 PO; -BUPR75TA8 PO; -HYDR-4075 PO; -INSU100V28 SQ; +MAGN400O6 PO; +MULT-447 PO; -OLME40TA18 PO; +TELM40TA8 PO; +ZINC50TA65 PO
[2022-09-29] MEDS ORDERED: PANTOPRAZOLE 80 MG in IV NS 0.9% 100 ML IV ONE (09:30)
[2022-09-29] MEDS ORDERED: PIPERACILLIN /TAZOBACTAM 3.375 G in IV D5W 50 ML IV ONE (09:30)
[2022-09-29] MEDS ORDERED: VANCOMYCIN 1 GM in IV D5W 250 ML IV ONE (09:30)
[2022-09-29] MEDS ORDERED: PANTOPRAZOLE 80 MG in IV NS 0.9% 500 ML IV ONE (09:30)
[2022-09-29] MEDS ORDERED: IV NS 0.9% 1,000 ML BAG IV ONE (09:30)
--- NOTE | 2022-09-29 09:31 | NUR ---
URINE SAMPLE COLLECTED FROM LEUNG CATHETER. SENT TO LAB
[2022-09-29 09:40] LABS: BASOPHILS # (AUTO) 0.1 K/uL (0.0-0.2); BASOPHILS % (AUTO) 0.6 % (0.0-2.0); EOSINOPHILS % (AUTO) 0.8 % (0.0-6.0); HEMATOCRIT 25 % (39-51); HEMOGLOBIN 8.1 g/dL (13.5-17.5); LYMPHOCYTES # (AUTO) 2.5 K/uL (0.8-4.8); LYMPHOCYTES % (AUTO) 20.2 % (20.0-44.0); MEAN CORPUSCULAR HGB CONC 32 g/dl (31.0-36.0); MEAN CORPUSCULAR VOLUME 88 fL (80-96); MONOCYTES # (AUTO) 0.6 K/uL (0.1-1.30); MONOCYTES % (AUTO) 5.2 % (2.0-12.0); NEUTROPHILS % (AUTO) 73.2 % (43.0-81.0); PLATELET COUNT (AUTO) 592 K/uL (150-450); RED BLOOD CELL COUNT(AUTO) 2.86 MIL/uL (4.5-6.0); WHITE BLOOD COUNT (AUTO) 12.3 K/uL (4.3-11.0)
[2022-09-29 09:54] LABS: CALCIUM, SERUM 8.7 mg/dL (8.5-10.1); CARBON DIOXIDE 22 mmol/L (21-32); CHLORIDE 105 mmol/L (98-107); CREATININE 1.2 mg/dL (0.6-1.3); GLUCOSE 87 mg/dL (74-106); POTASSIUM 3.8 mmol/L (3.5-5.1); SODIUM SERUM 136 mmol/L (136-145); UREA NITROGEN, BLOOD 27 mg/dL (7-18)
[2022-09-29 10:06] LABS: ALBUMIN 2.1 g/dL (3.4-5.0); ALKALINE PHOSPHATASE 82 U/L (46-116); ASPARTATE AMINOTRANSFERASE 19 U/L (15-37); BILIRUBIN,DIRECT 0.2 mg/dL (0.0-0.2); BILIRUBIN,TOTAL 0.4 mg/dL (0.2-1.0); TOTAL PROTEIN, SERUM 6.7 g/dL (6.4-8.2)
[2022-09-29 10:33] LABS: ALANINE AMINOTRANSFERASE 6 U/L (12-78)
--- NOTE | 2022-09-29 10:42 | NUR ---
covid swab taken
[2022-09-29 12:06] LABS: COLOR,URINE YELLOW (YELLOW)
[2022-09-29 12:07] LABS: BILIRUBIN,URINE NEGATIVE (NEGATIVE); NITRITE, URINE POSITIVE (NEGATIVE); PH,URINE 6.5 (5.0-8.0); PROTEIN,URINE 1+ mg/dl (NEGATIVE); UGLUCOSE NEGATIVE (NEGATIVE); UROBILINOGEN,URINE 0.2 EU/dL (0.2)
[2022-09-29 12:08] LABS: LEUKOCYTE ESTERASE ,URINE NEGATIVE (NEGATIVE)
[2022-09-29 12:13] LABS: BACTERIA,URINE Moderate /HPF (None Seen)
[2022-09-29 12:14] LABS: SQUAMOUS EPITHELIAL CELL,UR Few /HPF (None Seen)
[2022-09-29] MEDS ORDERED: CT SWABBABLE VALVE TRANS SET 1 EA INFUS.SET MC ONE (12:50)
[2022-09-29] MEDS ORDERED: IV NS 0.9% 250 ML IV ONE (12:50)
[2022-09-29] MEDS ORDERED: IOHEXOL-300 100 ML VIAL IV ONE (12:50)
--- NOTE | 2022-09-29 12:53 | NUR ---
[facility] PAGED
[2022-09-29] MEDS ORDERED: MAGNESIUM HYDROXIDE 30 ML UDC PO PRN (13:00)
[2022-09-29] MEDS ORDERED: hydrALAZINE HCL IV 20 MG VIAL IV PRN (13:00)
[2022-09-29] MEDS ORDERED: INSULIN REGULAR, HUMAN 100 UNIT/ML 3 ML VIAL SQ PRN (13:00)
[2022-09-29] MEDS ORDERED: MORPHINE SULFATE INJ 2 MG/ML DISP.SYRIN IV PRN (13:00)
[2022-09-29] MEDS ORDERED: *INSULIN REGULAR(HUMULIN R)HUM 100 UNIT/ML VIAL SQ PRN (13:00)
[2022-09-29] MEDS ORDERED: ACETAMINOPHEN 325 MG TABLET PO PRN (13:00)
[2022-09-29] MEDS ORDERED: DEXTROSE 50%-WATER 50 ML DISP.SYRIN IV PRN (13:00)
[2022-09-29] MEDS ORDERED: ONDANSETRON HCL/PF 4 MG/2 ML VIAL IVP PRN (13:00)
[2022-09-29 14:20] LABS: HEMOGLOBIN 6.1 g/dL (13.5-17.5)
--- NOTE | 2022-09-29 16:51 | NUR ---
followed up with [facility] from blood bank, not ready yet.
--- NOTE | 2022-09-29 17:00 | NUR ---
patient signed consent for blood transfusion
[2022-09-29] MEDS: BLOOD SUGAR DIAGNOSTIC 1 EACH STRIP VI SCH ×2 (17:38→23:26)
--- NOTE | 2022-09-29 18:25 | NUR ---
PRE BLOOD TRANSFUSION VITAL SIGNS TAKEN AND RECORDED.
--- NOTE | 2022-09-29 18:25 | NUR ---
verified blood unit with Ferny CORRAL
--- NOTE | 2022-09-29 18:40 | NUR ---
NO BLOOD TRANSFUSION ADVERSE REACTIONS NOTED. WILL CONTINUE TO MONITOR PATIENT CLOSELY. VITAL SIGNS TAKEN AND RECORDED.
[2022-09-29] MEDS ORDERED: PANTOPRAZOLE 40 MG VIAL ONE (19:01)
--- NOTE | 2022-09-29 19:09 | NUR ---
PATIENT ONGOING BLOOD TRANSFUSION. NO NOTED ADVERSE SIDE EFFECTS. MONITORED CLOSELY.
--- NOTE | 2022-09-29 19:20 | NUR ---
ENDORSEMENT GIVEN TO CLEMENTINA CORRAL FOR PAZ
--- NOTE | 2022-09-29 19:45 | NUR ---
BLOOD TRANSFUSION RBC X1 UNIT COMPLETE NO ADVERSE REACTIONS NOTED. PT TOLERATED RBC WELL. VSS
[2022-09-29] MEDS: IV NS 0.9% 1,000 ML IV SCH (20:22)
[2022-09-29] MEDS: PANTOPRAZOLE 40 MG VIAL IV SCH (20:22)
[2022-09-29] MEDS: CEFEPIME 2 GM in IV D5W 100 ML IV SCH (20:22)
--- NOTE | 2022-09-29 20:37 | NUR ---
Irving em in [facility] - 09/29/22 at 2038 by ERIN [id number]
--- NOTE | 2022-09-29 20:37 | NUR ---
Irving em in [facility] - 09/29/22 at 2037 by KVNG
--- NOTE | 2022-09-29 20:51 | NUR ---
UPDATED DR. MARVIN PMD ON PT'S CONDITION. DR. MARVIN PMD [phone] REQUESTING TO SPEAK TO GI REGARDING CONSULT.
--- NOTE | 2022-09-29 21:01 | NUR ---
REPORT GIVEN TO KATALINA LeyvaW RN FOR PAZ
[2022-09-29 21:16] LABS: HEMOGLOBIN 8.2 g/dL (13.5-17.5)
--- NOTE | 2022-09-29 22:05 | NUR ---
RN NOTES; RECEIVED PATIENT FROM ER WITH KENYA NORMAN ABLE TO MAKE NEEDS KNOWN,ON RM AIR LYLY WELL SATING 98%,NO SIGN SOB/DISTRESS NOTED,NO COMPLAIN OF PAIN/DISCOMFORT AT THIS TIME,IV ACCESS LH 20G PAENT AND INTACT,PATIENT WAS OREINT THE RM AND VERBALLY UNDERSTANDING,SAFETY MEASURE IN PLACE,CALL LIGHT WITHIN REACH,WILL CONTINUE TO MONITOR.
--- NOTE | 2022-09-29 22:10 | NUR ---
PT TRANSFERRED TO 3W 306 VIA ACLS PROTOCOL. VSS.
[2022-09-30] MEDS ORDERED: LATANOPROST EYE DROP 0.005% 2.5 ML BOTTLE ONE (00:18)
[2022-09-30] MEDS: LATANOPROST EYE DROP 0.005% 2.5 ML BOTTLE EACHEYE SCH ×2 (00:41→21:54)
[2022-09-30] MEDS: IV NS 0.9% 1,000 ML IV SCH ×2 (02:52→15:40)
[2022-09-30 04:00] VITALS: BP 129/60
[2022-09-30] MEDS ORDERED: CEFEPIME 1 GM VIAL ONE (05:32)
[2022-09-30 06:01] LABS: BASOPHILS % (AUTO) 0.4 % (0.0-2.0); EOSINOPHILS % (AUTO) 0.6 % (0.0-6.0); HEMATOCRIT 25 % (39-51); HEMOGLOBIN 7.9 g/dL (13.5-17.5); LYMPHOCYTES # (AUTO) 1.2 K/uL (0.8-4.8); LYMPHOCYTES % (AUTO) 12.4 % (20.0-44.0); MEAN CORPUSCULAR HGB CONC 32 g/dl (31.0-36.0); MEAN CORPUSCULAR VOLUME 84 fL (80-96); MONOCYTES # (AUTO) 0.8 K/uL (0.1-1.30); MONOCYTES % (AUTO) 8.1 % (2.0-12.0); NEUTROPHILS # (AUTO) 7.6 K/uL (1.8-8.9); NEUTROPHILS % (AUTO) 78.5 % (43.0-81.0); PLATELET COUNT (AUTO) 449 K/uL (150-450); RED BLOOD CELL COUNT(AUTO) 2.96 MIL/uL (4.5-6.0); WHITE BLOOD COUNT (AUTO) 9.7 K/uL (4.3-11.0)
[2022-09-30] MEDS: CEFEPIME 2 GM in IV D5W 100 ML IV SCH ×2 (06:02→17:27)
[2022-09-30 06:04] LABS: ALBUMIN 1.6 g/dL (3.4-5.0); BILIRUBIN,TOTAL 0.5 mg/dL (0.2-1.0); CALCIUM, SERUM 7.7 mg/dL (8.5-10.1); CREATININE 1.1 mg/dL (0.6-1.3); MAGNESIUM 1.7 mg/dL (1.8-2.4); PHOSPHORUS 3.3 mg/dL (2.5-4.9); POTASSIUM 3.6 mmol/L (3.5-5.1); TOTAL PROTEIN, SERUM 5.5 g/dL (6.4-8.2)
--- NOTE | 2022-09-30 06:25 | NUR ---
RN CLOSING NOTES; PATIENT IN BED SLEEPING BUT EASY TO AROUSED,AOX3 ABLE TO MAKE NEEDS KNOWN,ON RM AIR LYLY WELL,NO SIGN SOB/DISTRESS NOTED,NO COMPLAIN OF PAIN/DISCOMFORT DURING SHIFT,DUE MEDS GIVEN ORDER,ALL NEEDS ATTENDED,IV ACCESS LH 20G PATENT AND INTACT,FC DRAINING JOSUE URINE,SAFETY MEASURE IN PLACE,CALL LIGHT WITHIN REACH,WILL ENDORSED TO NEXT SHIFT.
[2022-09-30] MEDS: BLOOD SUGAR DIAGNOSTIC 1 EACH STRIP VI SCH ×4 (06:51→22:03)
[2022-09-30 07:00] VITALS: BP 112/49
--- NOTE | 2022-09-30 07:00 | NUR ---
STEMHOLE BORER OPENING NOTES: RECEIVED PT IN BED AWAKE, ALERT AND ORIENTED X 3 AND ABLE TO MAKE NEEDS KNOWN. NO SOB OR CARDIAC DISTRESS NOTED. DENIES PAIN AT THIS TIME, ON RUBBER ROLLER GRINDER WITH CURRENT READING OF V PACING 89 BPM. WITH LEUNG CATHETER PATENT AND INTACT DRANING CLEAR YELLOW COLORED URINE VIA GRAVITY. SAFETY MEASURES MAINTAINED : BED LOCKED AND IN LOWEST POSITION. SIDE RAILS UP X 2 CALL LIGHT AND BED SIDE TABLE IN EASY REACH FOR HELP. WILL MONITOR PT ACCORDINGLY.
[2022-09-30] MEDS: PANTOPRAZOLE 40 MG VIAL IV SCH ×2 (08:57→17:16)
[2022-09-30] MEDS: ASPIRIN EC 81 MG TABLET.DR PO SCH (08:57)
[2022-09-30] MEDS: ATORVASTATIN 40 MG TABLET PO SCH (08:57)
[2022-09-30] MEDS: MULTIVIT W/MINERALS 1 TAB TABLET PO SCH (08:57)
[2022-09-30] MEDS: ZINC SULFATE 220 MG CAPSULE PO SCH (08:57)
[2022-09-30] MEDS: ASCORBIC ACID 500 MG TABLET PO SCH (08:57)
[2022-09-30] MEDS ORDERED: MAGNESIUM OXIDE 400 MG TABLET PO ONE (10:00)
[2022-09-30 12:00] VITALS: BP 127/50
[2022-09-30 16:00] VITALS: BP 114/81
--- NOTE | 2022-09-30 19:04 | NUR ---
DIVISION SERVICE MANAGER CLOSING NOTES: PATIENT IN BED, AWAKE ALERT AND ORIENTED X 3 AND ABLE TO MAKE NEEDS KNOWN. NO SOB OR CARDIAC DISTRESS NOTED. DENIES PAIN AT THIS TIME. ON ROOM AIR AN TOLERATING WELL. ON WOOL BUYER WITH CURRENT READING OF:V PACING 89 BPM. LEUNG CATHETER IN PLACE AND DRAINING CLEAR YELLOW TO JOSUE COLORED URINE VIA GRAVITY. IV ACCES NOTED ON LEFT HAND GAUGE 20 PATENT INTACT AND INFUSING IV FLUIDS NS 75ML/HR. SAFETY MEASURES MAINTAINED: BED LOCKED AND IN LOWEST POSITION, SIDE RAILS UP X 2 CALL LIGHT AND BED SIDE TABLE IN EASY REACH. ENDORSED TO POWER TRANSFORMER INSPECTOR RN FOR CONTINUITY OF CARE.
--- NOTE | 2022-09-30 19:30 | NUR ---
RN OPENING NOTE RECEIVED PATIENT IN BED; AWAKE, ALERT AND ORIENTED X 3. ON ROOM AIR; TOLERATING WELL. NO SOB OR CARDIAC DISTRESS NOTED. DENIES PAIN OR DISCOMFORT AT THIS TIME. ON TELE MONITORING WITH CURRENT READING OF V PACING HR-86 BPM. WITH LEUNG CATHETER IN PLACE DRAINING BY GRAVITY TO YELLOW URINE OUTPUT. WITH IV ACCESS @ LEFT HAND 20G: PATENT AND INTACT INFUSING WITH NS 1L REGULATED @ 75ML/HR. SAFETY MEASURES IMPLEMENTED: CALL LIGHT AND TABLE WITHIN REACH, SIDE RAILS UP X 2, BED IN LOWEST LOCKED POSITION. WILL CONTINUE TO MONITOR
[2022-09-30 20:00] VITALS: BP 112/44
--- NOTE | 2022-09-30 20:22 | NUR ---
RN NOTE TRANSFER OF CARE GIVEN TO RN NEIL (REGISTRY).
[2022-09-30 21:15] LABS: HEMOGLOBIN 7.1 g/dL (13.5-17.5)
[2022-10-01] VITALS (12 sets, daily range): BP systolic 102–157; BP diastolic 42–76
[2022-10-01 04:45] LABS: OCCULT BLOOD STOOL POSITIVE (NEGATIVE)
[2022-10-01] MEDS: IV NS 0.9% 1,000 ML IV SCH ×2 (05:00→17:20)
[2022-10-01] MEDS: CEFEPIME 2 GM in IV D5W 100 ML IV SCH ×2 (06:00→17:08)
[2022-10-01 07:07] LABS: HEMOGLOBIN 6.8 g/dL (13.5-17.5)
--- NOTE | 2022-10-01 07:30 | NUR ---
RN OPENING NOTE RECEIVED PATIENT IN BED; AWAKE, ALERT AND ORIENTED X 3. ON ROOM AIR; TOLERATING WELL. NO SOB OR CARDIAC DISTRESS NOTED. DENIES PAIN OR DISCOMFORT AT THIS TIME. ON TELE MONITORING. WITH LEUNG CATHETER IN PLACE DRAINING BY GRAVITY TO YELLOW URINE OUTPUT. WITH IV ACCESS @ LEFT HAND 20G, PATENT AND INTACT INFUSING WITH NS 1L REGULATED @ 75ML/HR. WOUND CARE NURSE AT [facility], DRESSING CHANGED. SAFETY MEASURES IMPLEMENTED: CALL LIGHT AND TABLE WITHIN REACH, SIDE RAILS UP X 2, BED IN LOWEST LOCKED POSITION. WILL CONTINUE TO MONITOR.
--- NOTE | 2022-10-01 07:33 | NUR ---
WOUND CARE CONSULT: PT REFUSED SKIN ASSESSMENT. REVIEWED CHART, NURSING DOCUMENTATION AND PHOTOS WHICH INDICATE MULTIPLE PRESSURE ULCERS INCLUDING LOWER EXTREMITIES, BACK WOUNDS (UNSTAGEABLE) AND SACRAL STAGE 3 ULCER, ALL PRESENT ON ADMISSION. SURGICAL CONSULT CALLED TO DR DAVIS AND DR MAJANO. DISCUSSED SKIN PROTECTION WITH NURSING STAFF. MD IN AGREEMENT WITH PLAN OF CARE.
--- NOTE | 2022-10-01 07:55 | NUR ---
This patient is alert and orientated X4. He has refused for the room nurse to assess his wounds despite admonishments. His hemoglobin has been trending down and this morning it was critically alerted for 6.8. The morning nurse has been made aware as well as of the latest result. No s/s of distress noted. Dressings at both feet are dry clean and intact.
[2022-10-01] MEDS ORDERED: Z GUARD REMEDY 4 OZ OINT TP PRN (08:00)
[2022-10-01] MEDS: BLOOD SUGAR DIAGNOSTIC 1 EACH STRIP VI SCH ×4 (08:00→22:00)
[2022-10-01] MEDS: ASCORBIC ACID 500 MG TABLET PO SCH (09:10)
[2022-10-01] MEDS: MULTIVIT W/MINERALS 1 TAB TABLET PO SCH (09:10)
[2022-10-01] MEDS: ZINC SULFATE 220 MG CAPSULE PO SCH (09:10)
[2022-10-01] MEDS: ASPIRIN EC 81 MG TABLET.DR PO SCH (09:11)
[2022-10-01] MEDS: PANTOPRAZOLE 40 MG VIAL IV SCH ×2 (09:11→16:25)
[2022-10-01] MEDS: ATORVASTATIN 40 MG TABLET PO SCH (09:11)
[2022-10-01] MEDS: Z GUARD REMEDY 4 OZ OINT TP SCH (09:12)
[2022-10-01] MEDS: THERAHONEY GEL 1.5 OZ TUBE TP SCH (09:12)
--- NOTE | 2022-10-01 12:41 | NUR ---
RN NOTE STARTED [facility] TRANSFUSION AT 1226. STAYED WITH PT FOR THE FIRST 15 MINUTES. VS TAKEN BEFORE THE TRANSFUSION AND AFTER 15 MINUTES. VS STABLE. PT DOES NOT REPORT ANY CHANGES.
--- NOTE | 2022-10-01 15:01 | NUR ---
RN NOTE STARTED [facility] TRANSFUSION AT 1226. FINISHED THE TRANSFUSION AT 1501. VS TAKEN AFTER THE TRANSFUSION AND RECORDED. VS STABLE. PT DOES NOT REPORT ANY CHANGES.
--- NOTE | 2022-10-01 15:20 | NUR ---
RN NOTE CALLED LAB TO NOTIFY THEM THE PATIENT IS READY FOR BLOOD DRAW AFTER BLOOD TRANSFUSION.
--- NOTE | 2022-10-01 16:36 | NUR ---
RN NOTE- LAB NOTIFIED MRSA + NARES. BACTROBAN OINTMENT ORDERED BID. COMPLIED
[2022-10-01 16:59] LABS: HEMOGLOBIN 8.8 g/dL (13.5-17.5)
[2022-10-01] MEDS: ENSURE ENLIVE CHOC 237 ML CAN PO SCH (17:04)
--- NOTE | 2022-10-01 18:50 | NUR ---
RN CLOSING NOTES PATIENT IN BED SLEEPING BUT EASY TO AROUSED, AOX3 ABLE TO MAKE NEEDS KNOWN,ON RM AIR TOLERATING WELL, NO SIGN OF SOB/DISTRESS NOTED, NO COMPLAIN OF PAIN/DISCOMFORT DURING SHIFT,DUE MEDS GIVEN ORDER, ALL NEEDS ATTENDED,IV ACCESS: R UA 20G PATENT AND INTACT RUNNING NS @75ML/HR. LEUNG CATHETER DRAINING JOSUE URINE. KEPT PATIENT CLEAN AND DRY DURING THE SHIFT. PATIENT WITH EXTERNAL LEGAL STENOGRAPHER READING @90 BPM. FALL AND SAFETY MEASURES IN PLACE: CALL LIGHT AND TABLE WITHIN REACH, SIDE RAILS UP X 2, BED IN LOWEST AND LOCKED POSITION. WILL ENDORSE TO NEXT SHIFT FOR PAZ.
--- NOTE | 2022-10-01 19:30 | NUR ---
noc rn opening note received patient in bed with flat affect. a/ox4. no s/s of apparent distress on room air. denies pain at this time. 1 visitor at bedside. reading sr with 85 bpm on tele monitor. Haywood catheter draining clear, anastasia urine. rt. ua #20g running ns @75mls/hr. call light within reach, re-oriented and encouraged with the use of call light. safety in place. will continue with the plan of care for patient.
[2022-10-01] MEDS: MUPIROCIN OINT 2% 22 GM TUBE NS SCH (21:26)
[2022-10-01] MEDS: LATANOPROST EYE DROP 0.005% 2.5 ML BOTTLE EACHEYE SCH (22:00)
[2022-10-02] VITALS: BP 122/55
[2022-10-02 05:35] LABS: HEMOGLOBIN 9.2 g/dL (13.5-17.5)
[2022-10-02] MEDS: CEFEPIME 2 GM in IV D5W 100 ML IV SCH ×2 (06:09→17:34)
[2022-10-02] MEDS: BLOOD SUGAR DIAGNOSTIC 1 EACH STRIP VI SCH ×3 (07:11→17:29)
--- NOTE | 2022-10-02 07:40 | NUR ---
RN OPENING NOTES PATIENT IN BED SLEEPING BUT EASY TO AROUSED, AOX3 ABLE TO MAKE NEEDS KNOWN,ON RM AIR TOLERATING WELL, NO SIGN OF SOB/DISTRESS NOTED, NO COMPLAIN OF PAIN/DISCOMFORT AT THE MOMENT. IV ACCESS: R UA 20G PATENT AND INTACT RUNNING NS @75ML/HR. LEUNG CATHETER DRAINING JOSUE URINE. 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 SAFETY MEASURES IMPLEMENTED: CALL LIGHT AND TABLE WITHIN REACH, HOB ELEVATED, SIDE RAILS UP X 2, BED IN LOWEST AND LOCKED POSITION. WILL CONTINUE TO MONITOR AND ASSIST PATIENT.
[2022-10-02] MEDS: IV NS 0.9% 1,000 ML IV SCH (07:57)
[2022-10-02] MEDS: ENSURE ENLIVE CHOC 237 ML CAN PO SCH ×3 (07:59→17:11)
[2022-10-02 08:00] VITALS: BP 114/54
[2022-10-02] MEDS: MUPIROCIN OINT 2% 22 GM TUBE NS SCH (09:10)
[2022-10-02] MEDS: THERAHONEY GEL 1.5 OZ TUBE TP SCH (09:10)
[2022-10-02] MEDS: ATORVASTATIN 40 MG TABLET PO SCH (09:11)
[2022-10-02] MEDS: ASPIRIN EC 81 MG TABLET.DR PO SCH (09:11)
[2022-10-02] MEDS: PANTOPRAZOLE 40 MG/PACK PACK PO SCH ×2 (09:11→17:11)
[2022-10-02] MEDS: ASCORBIC ACID 500 MG TABLET PO SCH (09:11)
[2022-10-02] MEDS: ZINC SULFATE 220 MG CAPSULE PO SCH (09:11)
[2022-10-02] MEDS: Z GUARD REMEDY 4 OZ OINT TP SCH (09:12)
[2022-10-02] MEDS: MULTIVIT W/MINERALS 1 TAB TABLET PO SCH (09:44)
[2022-10-02 12:00] VITALS: BP 116/55
[2022-10-02 13:05] LABS: HEMOGLOBIN 9.7 g/dL (13.5-17.5)
[2022-10-02 16:00] VITALS: BP 127/67
[2022-10-02] MEDS ORDERED: CEFE1FRO IV (18:09)
--- NOTE | 2022-10-02 19:00 | NUR ---
RN CLOSING NOTES PATIENT IN BED SLEEPING BUT EASY TO AROUSED, AOX3 ABLE TO MAKE NEEDS KNOWN,ON RM AIR TOLERATING WELL, NO SIGN OF SOB/DISTRESS NOTED, NO COMPLAIN OF PAIN/DISCOMFORT DURING SHIFT,DUE MEDS GIVEN ORDER, ALL NEEDS ATTENDED,IV ACCESS: R UA 20G PATENT AND INTACT RUNNING NS @75ML/HR. LEUNG CATHETER DRAINING JOSUE URINE. KEPT PATIENT CLEAN AND DRY DURING THE SHIFT. DRESSING CHANGED. PATIENT IS SCHEDULED FOR DISCHARGE. EXIT CARE COMPLETED. SKIN ASSESSMENT DONE AND PHOTOS TAKEN AND REORDERED IN CHART. CALLED DAVID HARE @1855 AND GAVE REPORT TO ABBI. PATIENT WITH EXTERNAL COMPOSITION TILE LAYER READING @90S. FALL AND SAFETY MEASURES IN PLACE: CALL LIGHT AND TABLE WITHIN REACH, SIDE RAILS UP X 2, BED IN LOWEST AND LOCKED POSITION. WILL ENDORSE TO NEXT SHIFT.
[2022-10-02] MEDS ORDERED: THERAHONEY GEL 1.5 OZ TUBE TP SCH (20:00)
[2022-10-02] MEDS ORDERED: LIDOCAINE 1%-EPI 1:100,000 20 ML VIAL TP ONE (20:00)
[2022-10-02] MEDS ORDERED: SILVER NITRATE APPLICATOR 1 EA BOX TP SCH (20:00)
--- NOTE | 2022-10-02 20:16 | NUR ---
RN DC NOTE PATIENT BEING TRANSFERRED TO [facility] FOR HLOC, GOING TO RM [id number] , PER MAXINE CORRAL, SHE GAVE REPORT TO ABBI CORRAL. 2 EMS TRANSPORTING PATIENT VIA AMBULANCE. EXIT EDUCATION AND EXIT PACKET GIVEN TO THE PATIENT. PER MAXINE CORRAL, PATIENT'S BELONGINGS WERE BROUGHT HOME BY . CD FOR IMAGING STUDIES PROVIDED. PATIENT'S VSS STABLE UPON DC.
--- NOTE | 2022-10-03 10:31 | NUR ---
APS Note [employer] Controller received a consult request for a possible APS report. Pt. is an 87 year old male who was transferred to [facility] and discharged from [facility]. 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 The reference number is [id number].
== END 2022-10-02 20:20 | disposition short-term general hospital (02) | DRG 377 ==
LOC: ER 09:14 → TRANSITION 17:39 → TELE 20:43
PROVIDERS: ADMIT Internal Medicine; ATTEND Nurse Practitioner Acute Care
PROC: 30233N1 Transfusion of Nonautologous Red Blood Cells into Peripheral Vein, Percutaneous Approach (ICD-10-PCS; principal; 2022-09-29)
DX: K92.2 Gastrointestinal hemorrhage, unspecified (principal); L89.114 Pressure ulcer of right upper back, stage 4; L89.153 Pressure ulcer of sacral region, stage 3; D62 Acute posthemorrhagic anemia; E44.0 Moderate protein-calorie malnutrition; N12 Tubulo-interstitial nephritis, not specified as acute or chronic; R64 Cachexia; Z68.1 Body mass index [BMI] 19.9 or less, adult; E88.09 Other disorders of plasma-protein metabolism, not elsewhere classified; I10 Essential (primary) hypertension; K21.9 Gastro-esophageal reflux disease without esophagitis; E78.5 Hyperlipidemia, unspecified; Z86.73 Personal history of transient ischemic attack (TIA), and cerebral infarction without residual deficits; Z85.841 Personal history of malignant neoplasm of brain; Z85.46 Personal history of malignant neoplasm of prostate; Z79.82 Long term (current) use of aspirin; Z79.899 Other long term (current) drug therapy; Z87.19 Personal history of other diseases of the digestive system; Z95.828 Presence of other vascular implants and grafts; Z87.442 Personal history of urinary calculi; L89.216 Pressure-induced deep tissue damage of right hip; I71.43 Infrarenal abdominal aortic aneurysm, without rupture; E11.9 Type 2 diabetes mellitus without complications; N20.0 Calculus of kidney; D75.838 Other thrombocytosis; E87.6 Hypokalemia; K59.00 Constipation, unspecified; Z90.6 Acquired absence of other parts of urinary tract; L89.626 Pressure-induced deep tissue damage of left heel; L89.896 Pressure-induced deep tissue damage of other site; G31.84 Mild cognitive impairment of uncertain or unknown etiology; N32.0 Bladder-neck obstruction; N30.90 Cystitis, unspecified without hematuria; D53.9 Nutritional anemia, unspecified
CPT/HCPCS: 36415; 71045-TC; 80048-TC; 80053-TC; 80076-TC; 81001; 82272-TC; 82962-TC; 83605-TC; 83735-TC; 84100-TC; 84484-TC; 85025-TC; 85027-TC; 85730-TC; 86850-TC; 87040-TC; 87081-TC; 87086-TC; A6253; A6403; C9113; C9803; G0378; J0692; J1815; J2270; J2405; J2543; J3370; J3490; J7030; J7040; J7050; J7060; P9016; Q9967